=== PATIENT | female | born 1980 | race Caucasian/White ===

== ENCOUNTER 2020-12-21 10:40 | Emergency (ER) | payer OTHER ==
[2020-12-21 11:53] LABS: BASOPHIL 0.5 % (0-2); EOSINOPHIL 0.9 % (0-5); HCT 42.4 % (37.0-47.0); HGB 14.6 g/dl (12.5-16.0); LYMPHOCYTE 25.5 % (15-48); MCH 29.9 pg (25.0-31.0); MCHC 34.4 g/dL (32.0-36.0); MCV 86.9 fL (78.0-100.0); MONOCYTE 5.7 % (0-12); MPV 11.4 fL (6.0-9.5); NRBC 0; PLT 161 K/uL (150-400); RBC 4.88 M/uL (4.20-5.40); RDW 13.4 % (11.5-14.0); WBC 9.2 K/uL (4.0-10.5)
[2020-12-21 12:09] LABS: BUN/CREAT RATIO (CALC) 21.2 RATIO; CREATININE 0.66 mg/dL (0.51-0.95); POTASSIUM 3.6 mmol/L (3.5-5.1)
[2020-12-21 12:12] LABS: BILIRUBIN NEGATIVE (NEGATIVE); BLOOD NEGATIVE Ery/uL (NEGATIVE); CLARITY CLEAR (CLEAR); COLOR YELLOW (YELLOW); GLUCOSE (U) NORMAL (NORMAL); LEUKOCYTES NEGATIVE Leu/uL (NEGATIVE); NITRITE NEGATIVE (NEGATIVE); PROTEIN NEGATIVE (NEGATIVE); SPECIFIC GRAVITY 1.015 (1.001-1.030); UROBILINOGEN 0.2 mg/dL (0.2-1.0); pH 8.5 (5.0-9.0)
== END 2020-12-21 13:31 | disposition home or self-care (01) ==
LOC: FER 10:40
PROVIDERS: Emergency Medicine
DX: G89.29 Other chronic pain (principal); M54.9 Dorsalgia, unspecified; I10 Essential (primary) hypertension; J44.9 Chronic obstructive pulmonary disease, unspecified; F17.210 Nicotine dependence, cigarettes, uncomplicated; Z90.49 Acquired absence of other specified parts of digestive tract; Z88.8 Allergy status to other drugs, medicaments and biological substances; Z88.5 Allergy status to narcotic agent
CPT/HCPCS: 36415; 80048; 81003; 85025; J1170; J2405